=== PATIENT | male | born 1930 | race Caucasian/White ===

== ENCOUNTER 2017-12-14 16:10 | Inpatient (IN) | payer OTHER ==
--- NOTE | 2017-11-21 22:30 | NUR ---
PT. BEDDING CHANGED RT WET WITH URINE. TURNED TO LEFT SIDE WITH PILLOW IN BETWEEN LEGS AND LOG ROLLED. TOLERATED WELL. PT. SMILING ALL THE TIME. IVF SITE INTACT AND NO INFILTRATION. Addendum: 12/17/17 at 0255 by Aleida Talamantes RN ABOVE CHARTING FOR 12/16/17 -DINA
[~2017-12-14] VITALS: Ht 157.5 cm; Wt 63.5 kg
[2017-12-14 16:12] VITALS: BP 130/70
--- NOTE | 2017-12-14 16:13 | NUR ---
87m biba with c/o swelling to left jaw and pain d/t palpable mass x 2 days, progressively getting worse. Per family, patient able to eat and swollen. No drool noted and clear speech with funn sentences. Patient with gcs=14, patient with hx of Alzheimer's. Per family, patient is at neuro baseline. RR are even and unlabored. VSS. No acute resp distress at this time. Awaiting er md elaine. Patient placed to cardiac/bp/heart rate/pulse ox monitoring. Will continue to monitor.
[2017-12-14] MEDS ORDERED: NACL 0.9% 1,000 ML IV SCH (17:34)
[2017-12-14] MEDS ORDERED: HALOPERIDOL IM 5 MG/ML VIAL IVP ONE (17:35)
[2017-12-14] MEDS ORDERED: MORPHINE SULFATE 2 MG/ML SYR IVP ONE (17:35)
[2017-12-14] MEDS ORDERED: AMPICILLIN/SULBACTAM 3 GM in NACL 0.9% MINI-BAG PLUS 100 ML IV ONE (17:35)
[2017-12-14] MEDS ORDERED: ONDANSETRON 4 MG/2 ML VIAL IVP ONE (17:35)
[2017-12-14] MEDS ORDERED: AMPICILLIN/SULBACTAM 3 GM VIAL ONE (18:05)
--- NOTE | 2017-12-14 18:13 | NUR ---
family by bedside. patient restlessness. vss. will continue to monitor.
[2017-12-14] MEDS ORDERED: HALOPERIDOL IM 5 MG/ML VIAL IM ONE (18:35)
[2017-12-14] MEDS ORDERED: NA P133E RC (18:52)
[2017-12-14] MEDS ORDERED: MAGN400S60 PO (18:52)
[2017-12-14] MEDS ORDERED: DOCU250S72 PO (18:52)
[2017-12-14] MEDS ORDERED: BISA-213 RC (18:52)
[2017-12-14] MEDS ORDERED: PANT40EC PO (18:52)
[2017-12-14] MEDS ORDERED: ACET-2619 PO (18:52)
[2017-12-14] MEDS ORDERED: ASPI81CT89 PO (18:52)
[2017-12-14] MEDS ORDERED: DONE10TA10 PO (18:52)
[2017-12-14] MEDS ORDERED: ASCO500T45 PO (18:52)
[2017-12-14] MEDS ORDERED: SENN-72 PO (18:52)
[2017-12-14] MEDS ORDERED: FERR325E14 PO (18:52)
[2017-12-14] MEDS ORDERED: TRAM50TA1 PO (18:52)
[2017-12-14] MEDS ORDERED: CALC650T90 PO (18:52)
[2017-12-14] MEDS ORDERED: LISI30TA6 PO (18:52)
[2017-12-14 19:05] LABS: BASOPHILS # (AUTO) 0.1 K/uL (0.00-0.22); BASOPHILS % (AUTO) 0.7 % (0.0-2.0); EOSINOPHILS # (AUTO) 0.1 K/uL (0-0.4); EOSINOPHILS % (AUTO) 0.8 % (0.0-4.0); HEMATOCRIT 28.7 % (36-52); HEMOGLOBIN 9.4 g/dL (12.0-18.0); LYMPHOCYTES # (AUTO) 1.1 K/uL (2.0-11.5); LYMPHOCYTES % (AUTO) 12.7 % (20.5-51.1); MEAN CORPUSCULAR HEMOGLOBIN 31 pg (27-31); MEAN CORPUSCULAR HGB CONC 33 g/dL (33-37); MEAN CORPUSCULAR VOLUME 95.8 fL (80-94); MONOCYTES # (AUTO) 0.5 K/uL (0.8-1.0); MONOCYTES % (AUTO) 5.6 % (1.7-9.3); NEUTROPHILS # (AUTO) 6.9 K/uL (1.8-7.7); NEUTROPHILS % (AUTO) 80.2 % (42.2-75.2); PLATELET COUNT (AUTO) 277 K/uL (140-450); RED CELL DISTRIBUTION WIDTH 14.8 % (11.6-13.7); WHITE BLOOD COUNT (AUTO) 8.7 K/uL (4.8-10.8)
[2017-12-14 19:17] LABS: ANION GAP 14.2 (8-16); CARBON DIOXIDE 24.6 mmol/L (21-32); CHLORIDE 106 mmol/L (98-107); GLUCOSE 95 mg/dL (74-106); POTASSIUM 3.8 mmol/L (3.5-5.1); SODIUM SERUM 141 mmol/L (136-145); UREA NITROGEN, BLOOD 24 mg/dL (7-18)
--- NOTE | 2017-12-14 19:18 | NUR ---
Pt report given to Sam RICHARDS. Transfer of care at this time.
[2017-12-14] MEDS ORDERED: HYDROcodone/APAP 7.5/325 MG 1 TAB PO PRN (19:20)
[2017-12-14] MEDS ORDERED: ONDANSETRON 4 MG/2 ML VIAL IVP PRN (19:20)
--- NOTE | 2017-12-14 19:22 | NUR ---
PT SLEEPING COMFORTABLY IN BED, SPO2 100% ON O2 2L NC, RR 16 EVEN AND UNLABORED. ALL NEEDS MET AT THIS TIME.
[2017-12-14 19:23] LABS: ALBUMIN 2.6 g/dL (3.4-5.0); ASPARTATE AMINOTRANSFERASE 27 U/L (15-37); TOTAL BILIRUBIN 0.7 mg/dL (0.0-1.0)
[2017-12-14 19:58] LABS: CHOL/HDL RATIO 2.2 (1-4.5); FREE T4 (FREE THYROXINE) 1.27 ng/dL (0.76-1.46); MAGNESIUM 2.2 mg/dL (1.8-2.4); PHOSPHORUS 4.7 mg/dL (2.5-4.9); THYROID STIMULATING HORMONE 1.96 uIU/mL (0.34-3.74)
--- NOTE | 2017-12-14 20:15 | NUR ---
Patient will be admitted to care of DR. SILVA. Admited to TELE. Will go to room 110B. Belongings list completed. Report to SUSIE WILLIS. PT UNABLE TO COLLECT URINE AT THIS TIME, ENDORSED TO TELE NURSE.
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
[2017-12-14 20:30] VITALS: BP 119/39
[2017-12-14] MEDS: NACL 0.9% 1,000 ML IV SCH (20:36)
[2017-12-14] MEDS ORDERED: MAGNESIUM HYDROXIDE 2400 MG/30 ML UDC PO SCH (20:40)
[2017-12-14] MEDS ORDERED: SODIUM PHOSPHATE 118 ML ENEM RC PRN (20:40)
[2017-12-14] MEDS ORDERED: SENNA 8.6 MG TAB PO PRN (20:40)
[2017-12-14] MEDS ORDERED: BISACODYL 10 MG SUPP RC PRN (20:40)
[2017-12-14] MEDS ORDERED: traMADol 50 MG TAB PO PRN (20:40)
[2017-12-14] MEDS ORDERED: ACETAMINOPHEN 325 MG TAB PO PRN (20:40)
[2017-12-14] MEDS: DONEPEZIL 10 MG TAB PO SCH (21:00)
[2017-12-14] MEDS ORDERED: DOCUSATE SODIUM 100 MG GELCAP PO SCH ×2 (21:00)
--- NOTE | 2017-12-14 21:00 | NUR ---
PT NOT FULLY AWAKE TO TAKE MEDICATIONS AND ALSO, PT REFUSING TO OPEN HIS MOUTH.
[2017-12-14] MEDS ORDERED: DEXTROSE 50% 50 ML SYR IVP PRN (21:15)
--- NOTE | 2017-12-14 21:30 | NUR ---
PT'S FAMILY CAME BY AND WERE ASKED ABOUT PT'S HISTORY. PT APPEARS ASLEEP BUT REFUSED TO BE MOVED OR TOUCHED. SAFETY REINFORCED. BED ALARM ON.
--- NOTE | 2017-12-14 23:20 | NUR ---
SEEN PT ASLEEP BUT AROUSABLE. ARMS TIGHTEN WHEN MOVED. VITAL SIGNS CHECKED. PT REPOSITIONED FOR COMFORT.
[2017-12-15] VITALS: BP 121/44
[2017-12-15] MEDS ORDERED: AMPICILLIN/SULBACTAM 1.5 GM VIAL ONE ×2 (00:09→05:49)
--- NOTE | 2017-12-15 00:50 | NUR ---
VOIDED X1, SMALL AMOUNT OF BOWEL MOVEMENT. CLEANED AND REPOSITIONED PATIENT. CALL LIGHT WITHIN REACH, SAFETY MEASURE ENSURED, WILL CONTINUE TO MONITOR. Addendum: 12/16/17 at 0339 by Aliya Tabor RN WRONG TIME
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
[2017-12-15 04:00] VITALS: BP 141/47
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
[2017-12-15] MEDS: AMPICILLIN/SULBACTAM 1.5 GM in NACL 0.9% 50 ML IV SCH ×5 (06:00→18:32)
--- NOTE | 2017-12-15 06:25 | NUR ---
PT SLEEPING BUT AROUSABLE. BLOOD SUGAR CHECKED:90. SCD APPLIED ON BILATERAL LEGS FOR DVT PROPHYLAXIS. PT REPOSITIONED FOR COMFORT.
[2017-12-15] MEDS: BLOOD GLUCOSE MONITORING 1 DEV DEV FS SCH ×4 (06:58→20:27)
[2017-12-15 07:11] LABS: BASOPHILS % (AUTO) 0.4 % (0.0-2.0); EOSINOPHILS # (AUTO) 0.1 K/uL (0-0.4); EOSINOPHILS % (AUTO) 1.8 % (0.0-4.0); HEMATOCRIT 26.1 % (36-52); HEMOGLOBIN 8.8 g/dL (12.0-18.0); LYMPHOCYTES # (AUTO) 1.1 K/uL (2.0-11.5); LYMPHOCYTES % (AUTO) 16.7 % (20.5-51.1); MEAN CORPUSCULAR HEMOGLOBIN 32 pg (27-31); MEAN CORPUSCULAR HGB CONC 34 g/dL (33-37); MEAN CORPUSCULAR VOLUME 95.6 fL (80-94); MONOCYTES # (AUTO) 0.4 K/uL (0.8-1.0); MONOCYTES % (AUTO) 6.1 % (1.7-9.3); NEUTROPHILS # (AUTO) 5.1 K/uL (1.8-7.7); PLATELET COUNT (AUTO) 252 K/uL (140-450); RED BLOOD CELL COUNT(AUTO) 2.73 MIL/uL (4.20-6.10); RED CELL DISTRIBUTION WIDTH 14.3 % (11.6-13.7); WHITE BLOOD COUNT (AUTO) 6.8 K/uL (4.8-10.8)
--- NOTE | 2017-12-15 07:20 | NUR ---
REPORT GIVEN TO DAYSHIFT NURSE.
--- NOTE | 2017-12-15 07:21 | NUR ---
RECEIVED PATIENT REPORT FROM SKIN DRIER NURSE AT BEDSIDE FOR CONTINUITY OF CARE. PATIENT ASLEEP BUT AROUSABLE, AOX1, HX OF ALZHEIMER AND URDU SPEAKING ONLY. RESPIRATIONS EVEN AND UNLABORED. IV SITE PATENT, INTACT, AND ASYMPTOMATIC, INFUSING IVF WELL. UPDATED BOARD. SAFETY PRECAUTION IN PLACE, CALL LIGHT WITHIN REACH, WILL CONTINUE TO MONITOR PATIENT.
[2017-12-15 07:24] LABS: ANION GAP 13.6 (8-16); CARBON DIOXIDE 25.3 mmol/L (21-32); CHLORIDE 109 mmol/L (98-107); GLUCOSE 97 mg/dL (74-106); POTASSIUM 3.9 mmol/L (3.5-5.1); SODIUM SERUM 144 mmol/L (136-145); UREA NITROGEN, BLOOD 21 mg/dL (7-18)
--- NOTE | 2017-12-15 07:31 | NUR ---
GAVE REPORT TO APPLICATIONS SUPPORT LEAD NURSE AT BEDSIDE FOR CONTINUITY OF CARE. PATIENT RESTING IN BED, FAMILY AT BEDSIDE. PATIENT IN STABLE CONDITION. Addendum: 12/15/17 at 2012 by Richard Araiza RN WRONG TIME, DISREGARD NOTE.
[2017-12-15 07:50] LABS: APPEARANCE,URINE CLEAR (CLEAR); BILIRUBIN,URINE NEGATIVE (NEGATIVE); BLOOD, URINE NEGATIVE (NEGATIVE); COLOR,URINE YELLOW (YELLOW); LEUKOCYTE ESTERASE ,URINE NEGATIVE (NEGATIVE); NITRITE, URINE NEGATIVE (NEGATIVE); UGLUCOSE NEGATIVE (NEGATIVE)
[2017-12-15 08:00] VITALS: BP 136/58
[2017-12-15] MEDS ORDERED: PANTOPRAZOLE 40 MG INJ VIAL IVP SCH (09:00)
[2017-12-15] MEDS ORDERED: FERROUS SULFATE 325 MG TABEC PO SCH (09:00)
[2017-12-15] MEDS ORDERED: LISINOPRIL 20 MG TAB PO SCH (09:00)
[2017-12-15] MEDS ORDERED: PANTOPRAZOLE 40 MG TABEC PO SCH (09:00)
[2017-12-15] MEDS ORDERED: LISINOPRIL 10 MG TAB PO SCH (09:00)
[2017-12-15 10:16] LABS: RBC,URINE 0-5 (RARE) /HPF (0-5); WBC,URINE 0-5 (RARE) /HPF (0-5)
--- NOTE | 2017-12-15 11:05 | NUR ---
PATIENT HAS BEEN SCREENED AND CATEGORIZED MODERATE NUTRITION RISK. PATIENT WILL BE SEEN WITHIN 3-5 DAYS OF ADMISSION. 12/17/17 12/19/[address]
[2017-12-15] MEDS ORDERED: LANSOPRAZOLE 30 MG CAPDR PO SCH (11:41)
[2017-12-15] MEDS: ASPIRIN 81 MG TAB.CHEW PO SCH (11:49)
[2017-12-15] MEDS: LISINOPRIL 10 MG, LISINOPRIL 20 MG PO SCH ×2 (11:50)
[2017-12-15] MEDS: LACTOBACILLUS RHAMNOSUS GG 1 EACH CAP PO SCH (11:50)
[2017-12-15] MEDS: ASCORBIC ACID 500 MG TAB PO SCH (11:50)
[2017-12-15] MEDS: FERROUS SULFATE 300 MG/5 ML UDC PO SCH (11:51)
[2017-12-15] MEDS: DOCUSATE 100 MG/10 ML UDC PO SCH ×2 (11:51→20:17)
--- NOTE | 2017-12-15 11:51 | NUR ---
MEDICATIONS GIVEN ORDERED, CRUSHED AND GIVEN WITH APPLESAUCE. DAUGHTER DANO AT BEDSIDE. PATIENT TOLERATED IT WELL, NO SIGNS OF DISTRESS OR SOB NOTED ON ROOM AIR. SAFETY PRECAUTION IN PLACE, CALL LIGHT WITHIN REACH, WILL CONTINUE TO MONITOR PATIENT.
--- NOTE | 2017-12-15 14:03 | NUR ---
PATIENT RESTING IN BED, NO SIGNS OF DISTRESS NOTED ON ROOM AIR. SAFETY PRECAUTION IN PLACE, CALL LIGHT WITHIN REACH. WILL CONTINUE TO MONITOR PATIENT.
[2017-12-15] MEDS: NACL 0.9% 1,000 ML IV SCH (15:19)
--- NOTE | 2017-12-15 18:32 | NUR ---
MEDICATIONS GIVEN ORDERED, PATIENT TOLERATED IT WELL. DAUGHTER OTTO AT BEDSIDE. PATIENT TOLERATED IT WELL, NO SIGNS OF DISTRESS OR SOB NOTED ON ROOM AIR. SAFETY PRECAUTION IN PLACE, CALL LIGHT WITHIN REACH, WILL CONTINUE TO MONITOR PATIENT.
--- NOTE | 2017-12-15 19:31 | NUR ---
GAVE REPORT TO MAINTENANCE PAINTER APPRENTICE NURSE AT BEDSIDE FOR CONTINUITY OF CARE. PATIENT RESTING IN BED, FAMILY AT BEDSIDE. PATIENT IN STABLE CONDITION.
--- NOTE | 2017-12-15 19:40 | NUR ---
RECEIVED REPORT FROM DAY SHIFT RN, PATIENT SLEEPING IN BED, EASY TO AROUSE, NO S/S OF DISTRESS NOTED, RESPIRATION EVEN AND UNLABORED, DAUGHTER AT THE BEDSIDE, TEMP 100.4, APPLIED ICE PACKS UNDER THE ARMPITS. CALL LIGHT WITHIN REACH, SAFETY MEASURE ENSURED, WILL CONTINUE TO MONITOR.
[2017-12-15 20:00] VITALS: BP 142/66
[2017-12-15] MEDS: DONEPEZIL 10 MG TAB PO SCH (20:17)
[2017-12-15] MEDS: ACETAMINOPHEN 325 MG TAB PO PRN (20:18)
--- NOTE | 2017-12-15 20:27 | NUR ---
DUE MEDICATION GIVEN, PATIENT TOLERATED WELL. NO S/S OF DISTRESS NOTED, RESPIRATION EVEN AND UNLABORED. REPOSITIONED PATIENT WITH THE BRANCH SERVICE LEADER, CALL LIGHT WITHIN REACH, SAFETY MEASURE ENSURED, WILL CONTINUE TO MONITOR.
--- NOTE | 2017-12-15 22:37 | NUR ---
CHECKED PATIENT, DRY AND CLEAN, TEMP 97.9, REPOSITIONED PATIENT WITH THE BOX BENDER, CALL LIGHT WITHIN REACH, SAFETY MEASURE ENSURED, WILL CONTINUE TO MONITOR.
[2017-12-16] VITALS: BP 145/67
[2017-12-16] MEDS: AMPICILLIN/SULBACTAM 1.5 GM in NACL 0.9% 50 ML IV SCH ×4 (00:13→17:13)
--- NOTE | 2017-12-16 00:50 | NUR ---
VOIDED X1, SMALL AMOUNT OF BOWEL MOVEMENT. CLEANED AND REPOSITIONED PATIENT. CALL LIGHT WITHIN REACH, SAFETY MEASURE ENSURED, WILL CONTINUE TO MONITOR.
--- NOTE | 2017-12-16 02:40 | NUR ---
NO CHANGE IN CONDITION, PATIENT IS SLEEPING, RESPIRATION EVEN AND UNLABORED, ON ROOM AIR. REPOSITIONED PATIENT WITH THE DONKEY ENGINE FIRER/FIREMAN, CALL LIGHT WITHIN REACH, SAFETY MEASURE ENSURED, WILL CONTINUE TO MONITOR.
--- NOTE | 2017-12-16 04:10 | NUR ---
MODERATE AMOUNT OF BOWEL MOVEMENT. PATIENT IS CLEAN AND DRY NOW. REPOSITIONED PATIENT TO HIS COMFORTABLE POSITION. CALL LIGHT WITHIN REACH, SAFETY MEASURE ENSURED, WILL CONTINUE TO MONITOR.
[2017-12-16] MEDS: PANTOPRAZOLE 40 MG INJ VIAL IV SCH (05:35)
[2017-12-16] MEDS: BLOOD GLUCOSE MONITORING 1 DEV DEV FS SCH ×4 (06:47→20:33)
--- NOTE | 2017-12-16 06:57 | NUR ---
BLOOD SUGAR 85. NO INSULIN NEEDED. PATIENT IS IN STABLE CONDITION.
--- NOTE | 2017-12-16 07:21 | NUR ---
ENDORSED PLAN OF CARE TO DAY SHIFT. PATIENT IS IN STABLE CONDITION.
[2017-12-16 07:29] LABS: BASOPHILS % (AUTO) 0.6 % (0.0-2.0); EOSINOPHILS # (AUTO) 0.1 K/uL (0-0.4); EOSINOPHILS % (AUTO) 1.7 % (0.0-4.0); HEMATOCRIT 26.5 % (36-52); HEMOGLOBIN 8.7 g/dL (12.0-18.0); LYMPHOCYTES # (AUTO) 0.9 K/uL (2.0-11.5); LYMPHOCYTES % (AUTO) 15.7 % (20.5-51.1); MEAN CORPUSCULAR HEMOGLOBIN 32 pg (27-31); MEAN CORPUSCULAR HGB CONC 33 g/dL (33-37); MEAN CORPUSCULAR VOLUME 98.4 fL (80-94); MONOCYTES # (AUTO) 0.4 K/uL (0.8-1.0); MONOCYTES % (AUTO) 6.1 % (1.7-9.3); NEUTROPHILS # (AUTO) 4.6 K/uL (1.8-7.7); NEUTROPHILS % (AUTO) 75.9 % (42.2-75.2); PLATELET COUNT (AUTO) 252 K/uL (140-450); RED BLOOD CELL COUNT(AUTO) 2.69 MIL/uL (4.20-6.10); RED CELL DISTRIBUTION WIDTH 14.1 % (11.6-13.7); WHITE BLOOD COUNT (AUTO) 6.1 K/uL (4.8-10.8)
--- NOTE | 2017-12-16 07:30 | NUR ---
RECEIVED PT FROM FORECAST ANALYST NURSE, CAROLE, PT IS ASLEEP WITH BLANKET COVERING THE FACE, AWAKEN TO CHECK RESPIRATION AND RESPONDED. SIDE RAILS ARE UP AND CALL LIGHT WITHIN REACH, PT HAS AN IV LINE ON THE LEFT FA G. 20 WITH NS RUNNING AT 50ML/HR, INTACT AND INFUSING WELL. PT HAS A STAPLE INTACT ON THE RT HIP. NO SIGN OF DISTRESS NOTED AND WILL CONTINUE TO MONITOR.
[2017-12-16 07:47] LABS: MAGNESIUM 1.8 mg/dL (1.8-2.4); PHOSPHORUS 3.5 mg/dL (2.5-4.9)
[2017-12-16 08:00] VITALS: BP 146/52
[2017-12-16 08:06] LABS: ANION GAP 15.6 (8-16); CARBON DIOXIDE 22.3 mmol/L (21-32); CHLORIDE 108 mmol/L (98-107); CREATININE 0.9 mg/dL (0.7-1.3); GLUCOSE 94 mg/dL (74-106); POTASSIUM 3.9 mmol/L (3.5-5.1); SODIUM SERUM 142 mmol/L (136-145); UREA NITROGEN, BLOOD 16 mg/dL (7-18)
--- NOTE | 2017-12-16 08:15 | NUR ---
PT IS AWAKE AND VITALS SIGNS TAKEN AND IS STABLE, DR. REAVES CHECKED ON THE PT AND WAS INFORMED OF THE VITAL SIGNS RESULT. NO SIGN OF DISTRESS NOTED ON THE PT. WILL MONITOR.
--- NOTE | 2017-12-16 08:18 | NUR ---
PATIENT HAS BEEN RE-SCREENED AND RE-CATEGORIZED HIGH NUTRITIONAL RISK DUE TO FNS CONSULTATION. PATIENT WILL BE SEEN 12/16/[address]
--- NOTE | 2017-12-16 09:09 | NUR ---
SKIN ASSESSMENT DONE WITH THIS 87 Y/O MALE PT. RIGHT HIP SURGICAL WOUND WITH [address] SKIN IS CLEAN AND HEALING WELL, WOUND SITE NO REDNESS, NO DRAINAGE. RECOMMENDATION TO REMOVE EBER. APPLY SKIN PREP TO SURGICAL SITE QD AND PRN IF SOILING.
[2017-12-16] MEDS: DOCUSATE 100 MG/10 ML UDC PO SCH ×2 (10:41→20:26)
[2017-12-16] MEDS: ASCORBIC ACID 500 MG TAB PO SCH (10:42)
[2017-12-16] MEDS: FERROUS SULFATE 300 MG/5 ML UDC PO SCH (10:42)
[2017-12-16] MEDS: LACTOBACILLUS RHAMNOSUS GG 1 EACH CAP PO SCH (10:42)
[2017-12-16] MEDS: ASPIRIN 81 MG TAB.CHEW PO SCH (10:42)
[2017-12-16] MEDS: LISINOPRIL 10 MG, LISINOPRIL 20 MG PO SCH ×2 (10:43)
--- NOTE | 2017-12-16 10:45 | NUR ---
PT IS AWAKE WITH DAUGHTERS ON THE BEDSIDE, PT WAS BEING CLEANED BY YURIY JOHNSON, MEDICATIONS GIVEN AND OT TOLERATED IT, NO SIGN OF DISTRESS NOTED AND WILL MONITOR.
[2017-12-16] MEDS: NACL 0.9% 1,000 ML IV SCH (11:19)
--- NOTE | 2017-12-16 11:38 | NUR ---
PT IS AWAKE WITH THE DAUGHTERS ON THE BEDSIDE. BLOOD GLUCOSE MONITORING DONE AND NO SIGN OF DISTRESS NOTED. WILL MONITOR.
--- NOTE | 2017-12-16 13:00 | NUR ---
PT IS AWAKE WITH DAUGHTERS ON THE BEDSIDE, AND MEDICATION GIVEN THRU IVPB AND PT TOLERATED IT, NO SIGN OF DISTRESS NOTED AND WILL MONITOR
--- NOTE | 2017-12-16 13:20 | NUR ---
DR. REAVES INFORMED THAT HE TOOK OUT THE STAPLE OF THE PT ON THE RT LOWER PART OF THE RT LEG AND LEFT THE UPPER ONE IN PLACE. ACKNOWLEDGED.
--- NOTE | 2017-12-16 14:11 | NUR ---
12/16/17 RD INITIAL ASSESSMENT COMPLETED PLEASE REFER TO NUTRITION ASSESSMENT UNDER CARE ACTIVITY FOR ESTIMATED NUTRITIONAL NEEDS. 1. CONTINUE [facility] SOFT DIET TOLERATED 2. RECOMMEND [facility] TID 3. RD TO FOLLOW-UP 3-2 DAYS, HIGH RISK ALFREDA GIANG, RD
--- NOTE | 2017-12-16 16:40 | NUR ---
PT IS AWAKE WITH FAMILY ON THE BEDSIDE, BLOOD GLUCOSE CHECK DONE AND RESULT IS 131. NO INSULIN NEEDED. NO SIGN OF DISTRESS NOTED. WILL MONITOR.
--- NOTE | 2017-12-16 17:23 | NUR ---
PT IS ASLEEP LYING ON THE BED, VITAL SIGNS TAKEN AND PT WAS AWAKEN, WITH FAMILY ON THE BEDSIDE, MEDICATION GIVEN AND IS STABLE. BLOOD GLUCOSE CHECK DONE RESULT IS 131 AND NO INSULIN NEEDED. BP IS 119/44 AND RESPIRATIONS EVEN, NO SIGN OF DISTRESS NOTED AND WILL MONITOR.
--- NOTE | 2017-12-16 19:28 | NUR ---
ENDORSED PT TO COMPUTER NETWORKING INSTRUCTOR ADJUNCT NURSEGIACOMO FOR CONTINUITY OF CARE, PT IS STABLE AT THIS TIME.
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
[2017-12-16] MEDS: DONEPEZIL 10 MG TAB PO SCH (20:25)
[2017-12-16] MEDS: ACETAMINOPHEN 325 MG TAB PO PRN (20:26)
--- NOTE | 2017-12-16 20:42 | NUR ---
FAMILY MEMBERS IN HERE AND NO COMPLAINTS DONE. ENCOURAGED TO CALL FOR ANY HELP THEY MAY NEED. CALL LIGHT WITH IN REACH.
--- NOTE | 2017-12-16 22:30 | NUR ---
PT. BEDDING CHANGED RT WET WITH URINE. TURNED TO LEFT SIDE WITH PILLOW IN BETWEEN LEGS AND LOG ROLLED. TOLERATED WELL. PT. SMILING ALL THE TIME. IVF SITE INTACT AND NO INFILTRATION.
[2017-12-17] MEDS: AMPICILLIN/SULBACTAM 1.5 GM in NACL 0.9% 50 ML IV SCH ×3 (00:14→11:18)
[2017-12-17 00:15] VITALS: BP 124/48
--- NOTE | 2017-12-17 00:21 | NUR ---
SLEEPING WELL. NO SOB. FLACC 0-. TURNED LEFT SIDE AND SUPINE Q 2H. KEPT CLEAN AND DRY. COMFORTABLE. INTACT AND NO BLEEDING TO SURGICAL SITE TO RIGHT HIP.
--- NOTE | 2017-12-17 02:43 | NUR ---
TURNED TO SUPINE POSITION. SLEEPING WELL. WOKE UP WHEN TURNED. WENT BACK TO SLEEP AFTER. KEPT CLEAN AND DRY. FLACC 0-
--- NOTE | 2017-12-17 04:30 | NUR ---
SLEEPING WELL. NO RESTLESSNESS NOTED,
[2017-12-17] MEDS: NACL 0.9% 1,000 ML IV SCH ×2 (05:58→11:17)
[2017-12-17] MEDS: PANTOPRAZOLE 40 MG INJ VIAL IV SCH (05:58)
[2017-12-17] MEDS: BLOOD GLUCOSE MONITORING 1 DEV DEV FS SCH ×2 (06:00→11:52)
--- NOTE | 2017-12-17 06:28 | NUR ---
SLEPT WELL THIS SHIFT. TURNED TO LEFT SIDE AND SUPINE Q 2H. NEEDS ANTICIPATED AND MET. TOTAL CARE AT THIS TIME. SURGICAL SITE TO RIGHT THIGH INTACT AND NO BLEEDING.
--- NOTE | 2017-12-17 07:05 | NUR ---
RECEIVED REPORT FROM DIRECTOR INTELLIGENCE ANALYSIS PROGRAMS RN. PATIENT IS AAO X1. JAPANESE SPEAKING. NO COMPLAINTS OF PAIN. NO SIGNS OR SYMPTOMS OF DISTRESS. LUNGS CTA IN ALL [place]. HEART RHYTHM IS REGULAR. SWELLING ON UNDER LEFT CHIN/NECK DUE TO PAROTITIS. EBER ON RIGHT HIP S/P HIP FRACTURE. SKIN IS OTHERWISE INTACT. ABDOMEN IS SOFT AND ROUND. IV SITE PATENT AND ASYMPTOMATIC. DISCUSSED PLAN OF CARE WITH PATIENT. ALL SAFETY MEASURES ARE IN PLACE. CALL LIGHT IS WITHIN REACH, BED IN LOWEST POSITION. WILL CONTINUE TO MONITOR.
[2017-12-17 07:15] LABS: EOSINOPHILS # (AUTO) 0.3 K/uL (0-0.4); MONOCYTES # (AUTO) 0.5 K/uL (0.8-1.0); RED CELL DISTRIBUTION WIDTH 14.5 % (11.6-13.7)
[2017-12-17 07:17] LABS: BASOPHILS # (AUTO) 0.1 K/uL (0.00-0.22); BASOPHILS % (AUTO) 1.1 % (0.0-2.0); EOSINOPHILS % (AUTO) 3.3 % (0.0-4.0); HEMATOCRIT 26.4 % (36-52); HEMOGLOBIN 8.6 g/dL (12.0-18.0); MEAN CORPUSCULAR HEMOGLOBIN 32 pg (27-31); MEAN CORPUSCULAR HGB CONC 33 g/dL (33-37); MEAN CORPUSCULAR VOLUME 97.4 fL (80-94); MONOCYTES % (AUTO) 5.4 % (1.7-9.3); NEUTROPHILS # (AUTO) 6.9 K/uL (1.8-7.7); NEUTROPHILS % (AUTO) 70.2 % (42.2-75.2); PLATELET COUNT (AUTO) 247 K/uL (140-450); RED BLOOD CELL COUNT(AUTO) 2.71 MIL/uL (4.20-6.10); WHITE BLOOD COUNT (AUTO) 9.8 K/uL (4.8-10.8)
[2017-12-17 07:28] LABS: ANION GAP 13.7 (8-16); CARBON DIOXIDE 23.4 mmol/L (21-32); CHLORIDE 110 mmol/L (98-107); CREATININE 0.9 mg/dL (0.7-1.3); GLUCOSE 88 mg/dL (74-106); POTASSIUM 4.1 mmol/L (3.5-5.1); SODIUM SERUM 143 mmol/L (136-145); UREA NITROGEN, BLOOD 13 mg/dL (7-18)
[2017-12-17 08:00] VITALS: BP 158/66
[2017-12-17] MEDS: DOCUSATE 100 MG/10 ML UDC PO SCH (08:34)
[2017-12-17] MEDS: LACTOBACILLUS RHAMNOSUS GG 1 EACH CAP PO SCH (08:34)
[2017-12-17] MEDS: FERROUS SULFATE 300 MG/5 ML UDC PO SCH (08:34)
[2017-12-17] MEDS: ASCORBIC ACID 500 MG TAB PO SCH (08:35)
[2017-12-17] MEDS: ASPIRIN 81 MG TAB.CHEW PO SCH (08:35)
[2017-12-17] MEDS: LISINOPRIL 10 MG, LISINOPRIL 20 MG PO SCH ×2 (08:35)
[2017-12-17] MEDS ORDERED: AMPI1PDS18 IV (09:07)
[2017-12-17] MEDS ORDERED: LACT10CA PO (09:15)
[2017-12-17] MEDS ORDERED: LISI30TA6 PO (09:15)
--- NOTE | 2017-12-17 10:30 | NUR ---
PATIENT RESTING IN BED WITH FAMILY MEMBER AT BEDSIDE. NO COMPLAINTS OF PAIN OR SIGNS OF DISTRESS. WILL CONTINUE TO MONITOR.
--- NOTE | 2017-12-17 11:52 | NUR ---
BLOOD SUGAR IS 109. NO INSULIN COVERAGE NEEDED. PATIENT DENIES PAIN. WILL CONTINUE TO MONITOR.
--- NOTE | 2017-12-17 11:59 | NUR ---
Fare Collector Note: Per Moe from [facility] / , patient may return to room 135B, accepting physician is , she stated [employer] will picking belt operator patient today at 3:30pm today, patient's nurse Trip aware.
--- NOTE | 2017-12-17 12:30 | NUR ---
PATIENT IS RESTING IN BED WITH FAMILY MEMBER AT BEDSIDE. NO DISTRESS NOTED. WILL CONTINUE TO MONITOR.
--- NOTE | 2017-12-17 14:51 | NUR ---
CALLED [facility] [phone] AND GAVE REPORT TO SUSIE BUSTAMANTE FOR CONTINUITY OF CARE. COMMUNICATED THE NEED FOR FURTHER IV ANTIBIOTICS. PATIENT AWAITING HOUSE WORKER GENERAL VIA [facility] [employer] AT 1530. PATIENT IN STABLE CONDITION WITH NO COMPLAINTS OF PAIN. WILL CONTINUE TO MONITOR.
--- NOTE | 2017-12-17 16:20 | NUR ---
PATIENT PREFERS FAMILY MEMBER AT BEDSIDE TO TRANSLATE. DISCHARGE PAPERWORK, INCLUDING PRESCRIPTIONS AND DISCHARGE PLAN AT SNF FOR FURTHER IV ANTIBIOTICS, COMMUNICATED TO PATIENT AND FAMILY MEMBER. PATIENT AND FAMILY VERBALIZED COMPLETE UNDERSTANDING OF ALL DISCHARGE TEACHING. PHOTOS TAKEN OF SURGICAL SITE ON RIGHT HIP. EBER ARE CLEAN, DRY, AND INTACT. ALL PERSONAL BELONGINGS ARE WITH PATIENT. ID BANDS REMOVED. PATIENT IS IN STABLE CONDITION. [facility] IS HERE AND READY TO MILL RECORDER PATIENT TO TRANSFER TO [facility].
== END 2017-12-17 16:20 | DRG 154 ==
LOC: MED 16:10 → MTU 19:25
PROVIDERS: ADMIT General Practice; ATTEND General Practice
DX: K11.20 Sialoadenitis, unspecified (principal); N17.0 Acute kidney failure with tubular necrosis; E43 Unspecified severe protein-calorie malnutrition; I10 Essential (primary) hypertension; G30.9 Alzheimer's disease, unspecified; F02.80 Dementia in other diseases classified elsewhere, unspecified severity, without behavioral disturbance, psychotic disturbance, mood disturbance, and anxiety; Z68.25 Body mass index [BMI] 25.0-25.9, adult; Z79.899 Other long term (current) drug therapy
CPT/HCPCS: 36415; 70486; 71045; 80048; 80053; 81001; 82948; 83036; 83605; 83735; 84100; 84439; 84443; 85025; 87040; 87081; 87086; 96365; 96372; 96375; 99285; C1758; C9113; J0295; J1630; J2270; J2405; J7030; Q0092